=== PATIENT | male | born 1985 | race Caucasian/White ===

== ENCOUNTER 2018-02-28 13:16 | Emergency (ER) | payer MEDICAID, OTHER ==
[~2018-02-28] VITALS: Ht 604 cm; Wt 93.2 kg
[2018-02-28] MEDS ORDERED: LIDOcaine 1.5% w/epinephrine 1:200,000 5ml ampul IJ ONE (14:20)
[2018-02-28] MEDS ORDERED: PENI500T2 PO (14:29)
[2018-02-28 14:37] VITALS: BP 130/66
== END 2018-02-28 14:38 | disposition home or self-care (01) ==
LOC: ER 13:17
DX: K04.7 Periapical abscess without sinus (principal); Z79.899 Other long term (current) drug therapy
CPT/HCPCS: 99283; J3490